=== PATIENT | male | born 1985 | race Caucasian/White ===

== ENCOUNTER → 2025-07-26 | Outpatient (CLI) | payer OTHER, SELFPAY ==
--- NOTE | 2025-07-26 13:28 | MRI_ITS ---
PROCEDURE: SPINE CERVICAL (ROUTINE) 07/26/2025 REASON FOR EXAM: CERVICAL SPINAL STENOSIS, WEAKNESS OF LEFT HAND TECHNIQUE: Procedure Code: MRISP Modality: MR Procedure: SPINE CERVICAL (ROUTINE) Multiplanar and multisequence images were obtained without IV contrast administration. COMPARISON: None. FINDINGS: Vertebrae: Cervical vertebral body heights are preserved. Bone marrow signal is unremarkable. Alignment: There is reversal of the normal cervical lordosis. No spondylolisthesis. Spinal Cord: Cervical spinal cord is of normal size and signal intensities. Structures at the foramen magnum are unremarkable. C2-3: Unremarkable C3-4: There is a broad-based central disc protrusion. There is an anterior disc protrusion complicated by marginal osteophytes. There is central canal stenosis with the AP dimension of the spinal canal measuring 8 mm. There is no lateral recess stenosis or foraminal narrowing. C4-5: There is a broad-based central disc protrusion. There is an anterior disc protrusion complicated by marginal osteophytes. There is central canal stenosis with the AP dimension of the spinal canal measuring 9 mm. There is bilateral uncinate joint arthropathy. There is mild foraminal narrowing bilaterally. C5-6: There is a broad-based central disc protrusion. There is an anterior disc protrusion complicated by marginal osteophytes. There is central canal stenosis with the AP dimension of the spinal canal measuring 9 mm. There is bilateral uncinate joint arthropathy. There is mild foraminal narrowing bilaterally. C6-7: There is a broad-based central disc protrusion. There is an anterior disc protrusion complicated by marginal osteophytes. There is compression of the thecal sac without central canal stenosis. There is bilateral uncinate joint arthropathy. There is mild foraminal narrowing bilaterally. 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 MRI/Spine Cervical (Routine) IMPRESSION: 1. There is degenerative disc disease, C3-4 through C6-[address] enosis C3-4 through C5-6. 2. There is superimposed uncinate joint arthropathy bilaterally, C4-5 through C6-7 with resultant foraminal narrowing, bilaterally. 3. Cervical spasm. 4. Thornwaldt cyst as described. 5. There is a cyst in the left palatine tonsil consistent with a lympho epithe lial cyst. Reading Location: [place] [id number]
--- NOTE | 2025-07-26 13:29 | MRI_ITS ---
PROCEDURE: SPINE LUMBAR (ROUTINE) 07/26/2025 REASON FOR EXAM: LUMBAR RADICULOPATHY TECHNIQUE: Procedure Code: MRISPL Modality: MR Procedure: SPINE LUMBAR (ROUTINE) COMPARISON: None. FINDINGS: Vertebrae: There are no compression fractures. There is normal bone marrow signal in the lumbar vertebral bodies. Alignment: There is maintenance of the normal lumbar lordosis. There is no scoliosis. Conus Medullaris: The conus medullaris terminates normally at the T12-L1 level. L1-2: There is a broad-based central disc protrusion. There is mild compression of the thecal sac. There is no central canal stenosis, lateral recess stenosis or foraminal narrowing. L2-3: Unremarkable. L3-4: Unremarkable. L4-5: Unremarkable. L5-S1: There is a central disc extrusion, measuring 6 mm in vertical dimension, 12 mm in transverse dimension and 4 mm in AP dimension. There is concomitant narrowing of the intervertebral disc space. There is no central canal stenosis, lateral recess stenosis or foraminal narrowing. Sacrum: The visualized portion is normal. The paravertebral soft tissues are normal. MRI/Spine Lumbar (Routine) IMPRESSION: 1. Degenerative disc disease of the L1-2 and L5-S1 levels, as described. 2. There is a central disc extrusion at the L5-S1 level, as described. Reading Location: [place] [id number]
== END | disposition home or self-care (01) ==
LOC: OPMRI 13:23
DX: M48.02 Spinal stenosis, cervical region (principal); R29.898 Other symptoms and signs involving the musculoskeletal system; M54.16 Radiculopathy, lumbar region
CPT/HCPCS: 72141; 72148